=== PATIENT | female | born 1975 | race Caucasian/White ===

== ENCOUNTER → 2018-09-19 | Outpatient (CLI) | payer OTHER ==
[~2018-09-19] MED LIST: NONE PER PT
[2018-09-19 09:20] LABS: MICROSCOPIC NOT IND
[2018-09-19 09:21] LABS: BASOPHILS # (AUTO) 0.04 x10^3/uL (0-0.1); BASOPHILS % (AUTO) 1 % (0-1); EOSINOPHILS # (AUTO) 0.02 x10^3/uL (0-0.4); EOSINOPHILS % (AUTO) 0 % (1-7); LYMPHOCYTES % (AUTO) 33 % (22-44); MD NO; MEAN CORPUSCULAR HEMOGLOBIN 31.7 pg (27.0-34.8); MEAN CORPUSCULAR HGB CONC 33.6 g/dL (32.4-35.8); MEAN CORPUSCULAR VOLUME 94.2 fL (80-100); MEAN PLATELET VOLUME 7.2 fL (7.4-10.4); MONOCYTES # (AUTO) 0.36 x10^3/uL (0.2-0.8); MONOCYTES % (AUTO) 6 % (2-9); NEUTROPHILS # (AUTO) 3.46 x10^3/uL (1.8-6.8); NEUTROPHILS % (AUTO) 60 % (42-75); PLATELET COUNT 286 x10^3/uL (130-400); RED BLOOD COUNT 4.73 x10^6/uL (3.82-5.3); RED CELL DISTRIBUTION WIDTH 12.1 % (9.6-15.2)
[2018-09-19 09:23] LABS: CULTURE INDICATED? NO
[2018-09-19 09:30] LABS: ALANINE AMINOTRANSFERASE 28 U/L (12-78); ALBUMIN 4.4 g/dL (3.4-5.0); ANION GAP 6 mmol/L (5-15); CALCIUM 9.3 mg/dL (8.5-10.1); CHLORIDE 106 mmol/L (98-107)
[2018-09-19 09:35] LABS: ALKALINE PHOSPHATASE 76 U/L (45-117); BILIRUBIN,TOTAL 1.7 mg/dL (0.2-1.0); CREATININE 0.86 mg/dL (0.55-1.02); TOTAL PROTEIN 8.1 g/dL (6.4-8.2)
== END | disposition home or self-care (01) ==
LOC: STAR 08:39
PROVIDERS: ATTEND Obstetrics & Gynecology
DX: Z01.818 Encounter for other preprocedural examination (principal); O26.30 Retained intrauterine contraceptive device in pregnancy, unspecified trimester
CPT/HCPCS: 36415; 80053; 81003; 84702; 85025

== ENCOUNTER 2018-09-26 10:53 | Day surgery (SDC) | payer OTHER ==
[~2018-09-26] VITALS: Ht 162.6 cm; Wt 65.9 kg
[~2018-09-26 10:53] MED LIST changes: +BUPIVACAINE/PF 0.25% ONE
[2018-09-26 11:17] VITALS: BP 119/72
[2018-09-26] MEDS ORDERED: LACTATED RINGERS 1,000 ML IV SCH (11:17)
[2018-09-26 11:46] LABS: HCG UR SG 1.018 (1.003-1.030)
[2018-09-26] MEDS ORDERED: MIDAZOLAM 1 MG/ML, 2ML ONE (12:37)
[2018-09-26] MEDS ORDERED: SILVER NITRATE STICK TP ONE (12:39)
[2018-09-26] MEDS ORDERED: PROPOFOL 10 MG/ML, 20ML ONE (12:58)
[2018-09-26] MEDS ORDERED: DEXAMETHASONE 4 MG/ML, 1ML ONE (12:58)
[2018-09-26] MEDS ORDERED: FENTANYL PF 100 MCG/2ML ONE (13:24)
[2018-09-26] MEDS ORDERED: ACETAMINOPHEN 325 MG TABLET PO PRN (13:30)
[2018-09-26] MEDS ORDERED: OXYcodone 5 MG/5 ML ORAL.SOL UDC PO PRN (13:30)
[2018-09-26] MEDS ORDERED: LABETALOL 5 MG/ML SYRINGE IV PRN (13:30)
[2018-09-26] MEDS ORDERED: KETOROLAC 30 MG/1 ML IV PRN (13:30)
[2018-09-26] MEDS ORDERED: ALBUTEROL SULFATE 2.5 MG/3 ML NPPB PRN (13:30)
[2018-09-26] MEDS ORDERED: DIAZEPAM 5 MG/ML, 10ML VIAL IVPush PRN (13:30)
[2018-09-26] MEDS ORDERED: FENTANYL PF 100 MCG/2ML IV PRN (13:30)
[2018-09-26] MEDS ORDERED: HYDROmorphone 2 MG/ML, 1ML IVPush PRN (13:30)
[2018-09-26] MEDS ORDERED: hydrALAzine 20 MG/ML, 1ML IV PRN (13:30)
[2018-09-26] MEDS ORDERED: MEPERIDINE/PF 25MG/0.5ML IVPush PRN (13:30)
[2018-09-26] MEDS ORDERED: PROMETHAZINE 25 MG/ML, 1ML IV PRN (13:30)
[2018-09-26] MEDS ORDERED: KETOROLAC 30 MG/1 ML ONE (13:43)
== END 2018-09-26 15:00 | disposition home or self-care (01) ==
LOC: OUT 10:53
PROVIDERS: ATTEND Obstetrics & Gynecology
DX: T83.39XA Other mechanical complication of intrauterine contraceptive device, initial encounter (principal); D28.0 Benign neoplasm of vulva; Y83.8 Other surgical procedures as the cause of abnormal reaction of the patient, or of later complication, without mention of misadventure at the time of the procedure; Y92.89 Other specified places as the place of occurrence of the external cause
CPT/HCPCS: 11420; 36415; 58300; 81025; 86850; 86900; 88305; J1100; J1885; J2250; J2704; J3010; J3490; J7120; J7298